=== PATIENT | male | born 1940 | race Caucasian/White ===

== ENCOUNTER 2017-07-04 06:42 | Emergency (ER) | payer OTHER, MEDICARE ==
[~2017-07-04 06:42] MED LIST: AMLODIPINE10 MG PO; ASPIRIN EC81 M1 PO; BENICAR40 M1 PO; CARVEDILOL6.25 M1 PO; CYCLOBENZAPRINE10 M1 PO; DOXERCALCIFEROL IV PUSH; FINASTERIDE5 M1 PO; FLOMAX0.4 M1 PO; FUROSEMIDE40 MG PO; LIQUACEL 30 ML30 ML PO; METOPROLOL SUC100 MG PO; METOPROLOL SUCC50 M1 PO; MIDODRINE HCL2.5 M1 PO; MIRALAX17 GM PO; NEPHRO-VITE TA0.8 MG PO; NITROSTAT0.4 M1 SL; NORMAL SALINE OTHER; OMEPRAZOLE40 M1 PO; OMEPRAZOLE40 MG PO; PREDNISONE20 M1 PO; RANEXA500 M1 PO; RANEXA500 MG PO; RENVELA800 M1 PO; SENNA8.6 M1 PO; SENNA8.6 M3 PO; SIMVASTATIN20 M2 PO; SPIRIVA 18 MCG18 MCG INH; TAMSULOSIN HYD0.4 MG PO; TRAZODONE HCL50 M1 PO; TYLENOL WITH C1 EACH PO; VENOFER20 MG/ML IV PUSH; [UNRECOGNIZED DRUG - SUPPLY]
--- NOTE | 2017-07-04 06:52 | ED CARDIAC/CP/PALPITATIONS ---
See Addendum History of Present Illness General Chief Complaint: Chest Pain Stated Complaint: BIBA PT C/O CHEST PAIN Source: patient Exam Limitations: no limitations Vital Signs & Intake/Output Vital Signs & Intake/Output Vital Signs Date Time Temp Pulse Resp B/P B/P Pulse O2 O2 Flow FiO2 Mean Ox Delivery Rate 07/04 0646 98.4 76 24 165/79 95 Room Air Allergies Coded Allergies: Iodinated Contrast- Oral and IV Dye (IODINATED CONTRAST MEDIA - IV DYE) (CT DYE - PT STATES NOT SUPPOSED DYE DUE TO KIDNEY 10/15/15) Reconcile Medications Aspirin (Ecotrin*) 81 MG TABLET.DR 1 TAB PO DAILY heart (Reported) Carvedilol 6.25 MG TABLET 1 TAB PO BID HEART (Reported) Finasteride 5 MG TABLET 1 TAB PO DAILY PROSTATE (Reported) Midodrine HCl 2.5 MG TABLET 2.5 MG PO 0800,1200,1600 Lightheadedness/ low bp . Nephro-Vitamins (Nephro-Wilmer Tablet) 0.8 MG TABLET 1 TAB PO DAILY VITAMIN SUPPORT (Reported) Nitroglycerin (Nitrostat) 0.4 MG TAB.SUBL 1 TAB SL AD VT (Reported) 1st sign of attack; may repeat every 5 minutes until relief; if pain persists after 3 tablets in 15 minutes, prompt medical att Omeprazole 40 MG CAPSULE.DR 1 CAP PO DAILY GERD (Reported) Sennosides (Senna) 8.6 MG TABLET 2 TAB PO QPM CONSTIPATION (Reported) Sevelamer Carbonate (Renvela) 800 MG TABLET 1 TAB PO TID PHOSPHATE BINDER ( Reported) Simvastatin (Simvastatin*) 20 MG TABLET 1 TAB PO QPM HLD (Reported) Tylenol With Codeine (Tylenol With Codeine #3 Tablet) 1 EACH TABLET 1 TAB PO Q6H PRN PAIN Triage Note: PER PT CP LAST NIGHT TOOK 4 BABY ASA THIS AM AND PAIN WENT AWAY, BUT PAIN TO BACK OF NECK IS 10/[address] FOR GREATER THAN 1 WEEK, PT MILD SOB AT BASELINE ON DIALYSIS Triage Nurses Notes Reviewed? yes Onset: Gradual Duration: hour(s): Timing: recent history Location: left rib cage pain Radiation: no radiation Activities at Onset: rest Prior Chest Pain/Card Workup: heart attack Aspirin Today: 81 mg x 4, provided at home Associated Symptoms: neck pain that "hurts when I move." HPI: 76 yo gentleman h/o esrd on hemodialysis, h/o cardiac stents, presents with left sided chest wall and left neck pain "all night long... I couldn't sleep." He took asa 81mg x 4 prior to calling 911, "and now I feel fine." He notes no diaphoresis, dizziness, syncopal type symptoms, shortness of breath. (Naomi UP,Jorge Sam) Past History Travel History Traveled to [place] past 21 day No Medical History Any Pertinent Medical History? see below for history Neurological: CONCUSSION EENT: hearing loss Cardiovascular: CAD, CHF, hypertension, Rheumatic fever as a child Respiratory: COPD Gastrointestinal: NONE Hepatic: hepatitis C Renal: ESRD on HD, nephrolithiasis, mpgn Musculoskeletal: FX L HIP Psychiatric: NONE Endocrine: NONE Blood Disorders: NONE Cancer(s): bladder ca in remission [employer]/Reproductive: NONE History of MRSA: No History of VRE: No History of CDIFF: No Pneumonia Vaccine: 05/11/11 Influenza Vaccine: 01/10/16 Surgical History Surgical History: hip replacement, left hip repair X 2 neck surgery KIDNEY STONES BLADDER SURGERY CARDIAC STENT PLACEMENT PCI LARM AVG Psychosocial History Who do you live with Sister Services at Home None What is your primary language Kiswahili Tobacco Use: Quit >30 days ago Family History Family History, If Any: BROTHER FH: CAD (coronary artery disease) SISTER FH: CAD (coronary artery disease) MOTHER FH: breast cancer FATHER FH: CAD (coronary artery disease) Hx Contributory? No (Naomi UP,Jorge Sam) Review of Systems Review of Systems Constitutional: Reports: no symptoms. EENTM: Reports: no symptoms. Respiratory: Reports: no symptoms. Cardiovascular: Reports: no symptoms. GI: Reports: no symptoms. Genitourinary: Reports: no symptoms. Musculoskeletal: Reports: no symptoms. Skin: Reports: no symptoms. Neurological/Psychological: Reports: no symptoms. Hematologic/Endocrine: Reports: no symptoms. Immunologic/Allergic: Reports: no symptoms. All Other Systems: Reviewed and Negative (Naomi UP,Jorge Sam) Physical Exam Physical Exam General Appearance: well developed/nourished, no apparent distress Head: atraumatic, normal appearance Eyes: Bilateral: normal appearance, PERRL, EOMI. Ears, Nose, Throat: normal pharynx, normal ENT inspection Neck: no midline tenderness, paracervical muscle spasm to palpation. Respiratory: normal breath sounds, chest non-tender, no respiratory distress, quiet respiration, lungs clear Cardiovascular: regular rate/rhythm Gastrointestinal: normal bowel sounds, soft, non-tender, no organomegaly Back: normal inspection, normal range of motion Extremities: normal inspection, normal capillary refill, normal range of motion, no edema Neurologic/Psych: no motor/sensory deficits, awake, alert, oriented x 3 Skin: intact, normal color, warm/dry Core Measures ACS in differential dx? Yes No ASA d/t pt took asa @home CVA/TIA Diagnosis No Sepsis Present: No Sepsis Focused Exam Completed? No (Naomi UP,Jorge Sam) Progress Differential Diagnosis: AMI, CHF/pulm edema, costochondritis, musculoskeletal pain, unstable angina Plan of Care: Orders Procedure Date/time Status CTA CHEST-PULMONARY EMBOLISM 07/04 09 Active Add-on Test (ER Only) 07/04 0710 Active D-DIMER 07/04 0655 Complete TROPONIN LEVEL 07/04 0651 Complete LIPASE 07/04 0651 Complete HEPATIC FUNCTION PANEL 07/04 0651 Complete CBC WITHOUT DIFFERENTIAL 07/04 0651 Complete BASIC METABOLIC PANEL 07/04 0651 Complete AMYLASE 07/04 0651 Complete EKG 07/04 0651 Active Laboratory Tests 07/04/17 0655: Anion Gap 15, Estimated GFR 10 L, BUN/Creatinine Ratio 7.2, Glucose 89, Calcium 9.8, Total Bilirubin 0.6, Direct Bilirubin 0.5 H, AST 18, ALT 30, Alkaline Phosphatase 87, Troponin I 0.01, Total Protein 6.6, Albumin 3.8, Amylase 239 H, Lipase 547 H, D-Dimer High Sensitivty 673 H, CBC w Diff NO MAN DIFF REQ, RBC 4.51 L, MCV 98.8 H, MCH 32.2 H, MCHC 32.6 L, RDW 13.8, MPV 7.2 L, Gran % 72.6, Lymphocytes % 15.0 L, Monocytes % 7.4, Eosinophils % 4.5, Basophils % 0.5 , Absolute Granulocytes 6.2, Absolute Lymphocytes 1.3, Absolute Monocytes 0.6, Absolute Eosinophils 0.4, Absolute Basophils 0 Diagnostic Imaging: Viewed by Me: Radiology Read. Discussed w/RAD: Radiology Read. Initial ED EKG: pending Hand-Off Endorsed To: Scottie Abebe DO Endorsed Time: 0700 Pending: EKG, labs, other, Xray (Naomi UP,Jorge Sam) Departure Departure Disposition: STILL A PATIENT Condition: Stable Clinical Impression Primary Impression: Chest pain Referrals: Christine UP,Raymond Victoria (PCP/Family) Departure Forms: Customer Survey General Discharge Information (Naomi UP,Jorge Sam) Departure Comments 07/04/17 9:18 AM The patient was signed out to me by Dr. Salgado. He has an elevated d-dimer. Concern for pulmonary embolism was raised. The patient also relates a history of a thoracic aortic aneurysm. I spoke to Dr. Bunn who is in agreement with the plan to go ahead and give IV contrast for imaging of these life-threatening etiologies. (Sctotie Abebe DO) Critical Care Note Critical Care Note Critical Care Time: non-applicable (Naomi UP,Jorge Sam)
[2017-07-04 07:21] LABS: ABSOLUTE BASOPHIL COUNT 0 /CUMM (0.0-0.2); ABSOLUTE EOSINOPHIL COUNT 0.4 /CUMM (0.0-0.7); ABSOLUTE GRANULOCYTE CT 6.2 /CUMM (1.4-6.5); ABSOLUTE LYMPH COUNT 1.3 /CUMM (1.2-3.4); ABSOLUTE MONOCYTE COUNT 0.6 /CUMM (0.10-0.60); BASOPHIL % 0.5 % (0.0-2.0); EOSINOPHIL % 4.5 % (0-5); GRANULOCYTE % 72.6 % (42.2-75.2); HEMATOCRIT 44.5 % (42-52); MEAN CORPUSCULAR HGB 32.2 PG (27.0-31.0); MEAN CORPUSCULAR HGB CONC 32.6 G/DL (33.0-37.0); MEAN CORPUSCULAR VOLUME 98.8 FL (80.0-94.0); MEAN PLATELET VOLUME 7.2 FL (7.4-10.4); PLATELET COUNT 297 /CUMM (130-400); RBC DISTRIBUTION WIDTH 13.8 % (11.5-14.5); RED BLOOD CELL CT 4.51 /CUMM (4.70-6.10); WHITE BLOOD CELL COUNT 8.6 /CUMM (4.8-10.8)
--- NOTE | 2017-07-04 07:29 | RADIOLOGY REPORT ---
EXAMINATION: XR PORTABLE CHEST CLINICAL INFORMATION: Chest pain. COMPARISON: None TECHNIQUE: Portable frontal view of the chest was obtained. FINDINGS: Both lungs are expanded with bandlike atelectasis right middle lobe. Rest of the lungs are clear and expanded. There is mild cardiomegaly with normal pulmonary vascularity. Mild elevation of left hemidiaphragm is noted. No gross bony abnormality seen. IMPRESSION: Bandlike atelectasis right middle lobe. Mild cardiomegaly.
[2017-07-04 11:32] VITALS: BP 130/66
== END 2017-07-04 13:45 | disposition short-term general hospital (02) ==
LOC: ERH 06:42
PROVIDERS: Pediatrics
DX: R07.89 Other chest pain (principal)
CPT/HCPCS: 71045; 93005; 93010